=== PATIENT | male | born 1955 | race Caucasian/White ===

== ENCOUNTER 2016-04-20 22:35 | Inpatient (IN) | payer SELFPAY ==
[~2016-04-20] VITALS: Ht 180.3 cm; Wt 102.0 kg
[2016-04-21] VITALS (20 sets, daily range): BP systolic 89–134; BP diastolic 52–93
--- NOTE | 2016-04-21 00:32 | ED ORDER SUMMARY ---
..... Patient: CHLOE JEFFREY OrderSheet [facility] VisitID: [id number] [place] [address] 60y, M Registration Date/Time: 04/20/2016 ORDER SHEET Weight: 106.5 kg (stated) Allergies: No Known Drug Allergy GENERAL ORDERS: Chest 2V Urgent (22:48 04/20/2016 Tiago BARNES) (Ack 22:52 CHagerty ER [place]) (23:36 RFay) Blood Culture (No) (N/A) Urgent (22:48 04/20/2016 Tiago BARNES) (Ack 22:52 CHagerty ER [place]) (23:06 EInderbitzen R.N.) Cardiac Panel Stat (22:48 04/20/2016 Tiago BARNES) (Ack 22:52 CHagjames ER [place]) BNP Urgent (22:48 04/20/2016 Tiago BARNES) (Ack 22:52 CHagerty ER [place]) (23:06 EInderbitzen R.N.) D-Dimer Urgent (22:48 04/20/2016 Tiago BARNES) (Ack 22:52 CHagerty ER [place]) (23:06 EInderbitzen R.N.) Lactate, Serum Urgent (22:48 04/20/2016 Tiago BARNES) (Ack 22:52 CHagerty ER [place]) (23:06 EInderbitzen R.N.) PCT (Procalcitonin) Urgent (22:48 04/20/2016 Tiago BARNES) (Ack 22:52 CHagerty ER [place]) (23:06 EInderbitzen R.N.) Electroencephalographic Technician (Continuous) (22:49 04/20/2016 Tiago BARNES) (Ack 22:52 CHagerty ER [place]) (23:06 EInderbitzen R.N.) Oxygen (2 L/min) (NC) (22:49 04/20/2016 Tiago BARNES) (Ack 22:52 CHagerty ER [place]) (23:06 EInderbitzen R.N.) Pulse oximeter (22:49 04/20/2016 Tiago BARNES) (Ack 22:52 CHagerty ER [place]) (23:06 EInderbitzen R.N.) EKG - ER Stat (22:49 04/20/2016 Tiago BARNES) (Ack 22:52 CHagerty ER [place]) (23:02 CHagerty ER [place]) Rapid Influenza Screen (Nasal Pharyngeal) (swab) Urgent (22:50 04/20/2016 Tiago BARNES) (Ack 22:52 CHagerty ER [place]) (23:06 EInderbitzen R.N.) ABG (G) Urgent (23:03 04/20/2016 Tiago BARNES) (Ack 23:05 CHagerty ER [place]) (23:57 EInderbitzen R.N.) MEDICATION ORDERS: Albuterol Neb Tx 2.5 mg (HHN) (22:49 04/20/2016 Tiago BARNES) (Ack 22:52 CHagerty ER [place]) (23:03 CHagerty ER [place]) Bactrim DS PO (Tablet 800-160 mg) 2 tabs (NOW) (23:34 04/20/2016 Tiago BARNES) (0:04 EInderbitzen R.N.) IV FLUIDS: IV NS : initial bolus 1000 mL (1000 mL/hr), then 500 mL/hr for 2h (NOW); Routine (22:48 04/20/2016 Tiago BARNES) (23:23 EInderbitzen R.N.) Levaquin IV 750 mg/150 mL (NOW) (23:04 04/20/2016 Tiago BARNES) (23:24 EInderbitzen R.N.) ORDER SHEET NOTES: [Electronically signed by Bridget Luo R.N. (00:41 04/21/2016)] [Electronically signed by Conor Avila MD (21:06 04/22/2016)] [Electronically locked/signed by Bridget Luo R.N. (00:41 04/21/2016)]
--- NOTE | 2016-04-21 00:32 | ED CLINICAL REPORT ---
Clinical Report - Physicians/Mid Levels [facility] [address] [place] [address] 04/20/2016 22:36 Patient: CHLOE JEFFREY Time Seen: 22:42 Apr 20 2016. Arrived- By ambulance. Historian- patient and EMS personnel. CPT: Critical care < 74 min plus (#[id number]) and 30-74 min plus (#[id number]). EKG interpretation (#[id number]). HISTORY OF PRESENT ILLNESS Chief Complaint: DYSPNEA. This started last night This started last night. ( SHORT OF BREATH SINCE LAST NIGHT, WORSE TONIGHT, FRIENDS CALLED EMS. STATES HE WAS ALMOST PASSING OUT). and is still present. The dyspnea is described as moderate and is worsened by walking and exertion, is improved by rest and is improved with oxygen. The patient has had a cough and dizziness. He has had moderate amounts of thick sputum. There has been a change from baseline. He has had moderate chest soreness (right chest due to cutting firewood and coughing.). Similar symptoms previously: As bad. Diagnosis: pneumonia. Recent medical care: Not recently seen/assessed. REVIEW OF SYSTEMS No eye irritation, sore throat, nasal discharge, sinus drainage or nausea. No vomiting, abdominal pain, diarrhea, black stools or bloody stools. No headache, fainting episodes, difficulty with urination, excessive urination or skin rash. No enlarged lymph nodes or joint pain. The patient has had difficulty walking. He has had weakness. Family reports confusion at home. All systems otherwise negative, except as recorded above. PAST HISTORY Pneumonia 4 times. The last was 10 years ago. No history of heart disease, lung disease, renal disease, hypertension or neurological disease. No history of GI disease or diabetes mellitus. Surgeries: Tonsillectomy. Medications: None. Allergies: No Known Drug Allergy. SOCIAL HISTORY Heavy tobacco smoker (cigarette)- 1 pack per day. Alcohol use. History of drug use: marijuana. ADDITIONAL NOTES The nursing notes have been reviewed. PHYSICAL EXAM Vital Signs: 04/20/2016 22:37 BP: 114/66. HR: 108. RR: 24. O2 saturation: 87%. Temp: 98.8 F. Appearance: Alert. Patient in mild distress. Eyes: Pupils equal, round and reactive to light. Eyes normal inspection. (Subconjunctival hemorrhage. (hit in the eye prior)). ENT: Ears normal. Nose normal. Dry mucous membranes present. Pharynx normal. Uvula midline. Neck: Normal inspection. No jugular venous distention. CVS: Tachycardia. Heart sounds normal. Pulses normal. Respiratory: Moderate respiratory distress with tachypnea. Moderate right mid- chest wall tenderness. The tenderness is well-localized. Expiratory mild bilateral wheezes diffusely. Moderate rhonchi present in the right lung base posteriorly and mid-lung posteriorly. Rales present. Abdomen: Soft and nontender. Back: Normal inspection. Skin: Skin warm. Normal skin color. No rash. Extremities: Extremities exhibit normal ROM. No calf tenderness. No lower extremity edema. Neuro: Oriented X 3. No motor deficit. No sensory deficit. Reflexes normal. LABS, X-RAYS, AND EKG EKG: Normal sinus rhythm. Rate: 104. Tachycardia. Unifocal narrow-complex ectopic beats. Premature atrial contractions. Normal P waves. Normal ELSA. Normal QRS complex. Normal axis. Non-specific ST segment / T wave abnormalities. Prior EKG unavailable. The study has been interpreted contemporaneously. The study has been independently viewed by me. The EKG appears to be a good tracing. Chest X-ray: Infiltrate in the right middle lobe and right lower lobe. Consistent with pneumonia. No pneumothorax. Views: PA and lateral. Technique: good. The X-rays were independently viewed by me and interpreted contemporaneously by me. Laboratory Tests: CBC w Diff: (EMILY: 04/20/2016 22:50) ( MsgRcvd 04/20/2016 23:11) Final results Test Result Flag Units (Reference) WHITE BLOOD COUNT 13.8 H K/uL (4.5-11.5) RED BLOOD COUNT 5.09 M/uL (4.50-5.90) HEMOGLOBIN 15.7 gm/dL (13.5-17.5) HEMATOCRIT 46.4 % (41.0-53.0) MEAN CELL VOLUME 91 fL (80-100) MEAN CORPUSCULAR HGB 31 pg (26-34) MEAN CORPUSCULAR HGB CONC 34 g/dL (31-37) RED CELL DISTRIBUTION WIDTH 12.5 % (11.6-14.8) PLATELET COUNT 241 K/uL (150-400) LYMPH % 4.3 L % (25-40) MONO % 0.6 L % (3-14) GRANULOCYTE % 95.1 [id number]: (EMILY: 04/20/2016 22:50) ( [facility] 04/20/2016 23:17) Final results Test Result Flag Units (Reference) D-DIMER QUANTITATIVE 0.52 ug/mLFEU (0.27-0.52) The primary value of this quantitative assay relates toits negative predictive value (i.e. exclusion) of pulmonaryembolism/deep vein thrombosis/DIC.Elevated levels of d-dimer may also occur with:, age, cancer, inflammation, liver disease,post-op, infection, hematoma, coronary disease, peripheralarteriopathy, bleeding disorders and thrombolytic treatment.Results should be correlated with other clinical andradiological data.Testing Methodology: Latex Immunoassay BNP: (EMILY: 04/20/2016 22:50) ( [facility] 04/20/2016 23:30) Final results Test Result Flag Units (Reference) B-TYPE NATRIURETIC PEPTIDE 59.8 pg/ml (5-100) Lactate, Serum: (EMILY: 04/20/2016 22:50) ( [facility] [place]:32[place] Final results Test Result Flag Units (Reference) LACTIC ACID 3.4 H mmol/L (0.4-2.0) [id number]: (EMILY: 04/20/2016 22:50) ( [facility] 23:39) Final results Test Result Flag Units (Reference) PROCALCITONIN 14.1 H ng/mL (0-0.5) PCT Concentration: Interpretation : Risk/option for action PCT <=0.5 ng/mL : Systemic : Low risk forinfection(sepsis): progression to severeis not likely. : systemic infection.Local bacterial : CAUTION-PCT levelsinfection is : below 0.5 ng/mL do notpossible. : exclude an infection,because localizedinfections (withoutsystemic signs) may beassociated with suchlow levels. If PCT ismeasured very earlyafter a bacterialchallenge (usually <6hours), these valuesmay still be low. Inthis case PCT shouldbe re-assessed 6-24hours later. PCT >0.5 and : Systemic infection: Moderate risk for<= 2 ng/mL : (sepsis) is : progression to severepossible, but : systemic infection.other conditions : The patient should beare known to : closely monitoredelevate PCT. : both clinically andby re-assessing PCTwithin 6-24 hours. PCT > 2 ng/mL : Systemic infection: High risk for(sepsis) is likely: progression to severeunless other : systemic infection.causes are known. : PCT >= 10 ng/mL : Important systemic: High likelihood ofinflammatory : severe sepsis orresponse, almost : septic shock.exclusively due to:severe bacterial :sepsis or septic :shock. : CHEM 13 PANEL: (EMILY: 04/20/2016 22:50) ( MsgRcvd 04/20/2016 23:22) Final results Test Result Flag Units (Reference) GLUCOSE 141 H mg/dL (70-110) BUN 16 mg/dL (7-18) CREATININE 1.3 mg/dL (0.6-1.3) Estimated GFR 59.65 mL/min Estimated GFR- >60 mL/min Note: Persistent reduction over 3 months in eGFR<60 mL/min/1.73 m2 defines CKD. Patients with eGFR values>=60 mL/min/1.73 m2 may also have CKD if evidence ofpersistent proteinuria. Additional information may be foundat www.kidney.org. SODIUM 137 mmol/L (136-145) POTASSIUM 4.4 mmol/L (3.5-5.1) CHLORIDE 100 mmol/L (98-107) CARBON DIOXIDE 26 mmol/L (21-32) CALCIUM 8.8 mg/dL (8.5-10.1) TOTAL PROTEIN 6.6 g/dL (6.4-8.2) ALBUMIN 3.2 L g/dL (3.3-5.0) BILIRUBIN, TOTAL 1.1 H mg/dL (0.0-1.0) ALKALINE PHOSPHATASE 75 U/L (46-116) AST (SGOT) 17 U/L (15-37) ALT (SGPT) 26 U/L (12-78) MAGNESIUM 1.1 L mg/dL (1.8-2.4) CPK 134 U/L (24-260) TROPONIN I <0.05 L ng/mL (0.00-1.5) TROPONIN REFERENCE RANGE:<0.1 NEGATIVE0.1-1.5 INDETERMINANT>1.5 POSITIVE ABG: (EMILY: 04/20/2016 23:03) ( MsgRcvd 04/20/2016 23:24) Final results Test Result Flag Units (Reference) FIO2 0.35 L % (20-101) ABG MODE OF DELIVERY NC MODIFIED JENNIFER TEST POSITIVE? NO ARTERIAL BLOOD GAS SITE RR ARTERIAL BLOOD GAS pH 7.45 (7.35-7.45) ABG PCO2 36.2 mmHg (35-45) ABG PO2 62.8 mmHg (60.0-80.0) ABG BASE EXCESS 1.0 H mmol/L (-6.0--6.0) ABG HCO3 25.0 mmol/L (20.0-26.0) ABG TCO2 26.1 mmol/L (24.0-30.0) ABG [id number] 138.1 H mmHg (7.0-14.0) *NOTE: Normal rangeis based on aFIO2 of 21% ABG SAT O2 94.5 L % (95.1-100.0) ABG TOTAL HEMOGLOBIN 14.2 g/dL (14.0-18.0) ABG O2 HEMOGLOBIN 92.4 L % (95.0-100.0) ABG CARBOXYHEMOGLOBIN 1.9 H % (0.5-1.5) ABG METHEMOGLOBIN 0.3 L % (0.4-1.5) ABG RHEMOGLOBIN 5.4 % COMMENTS 4LNC Rapid Influenza Screen: (EMILY: 04/20/2016 22:50) ( MsgRcvd 04/20/2016 23:17) Final results SPECIMEN DESCRIPTION: SWAB Test Result Flag Units (Reference) RAPID INFLUENZA SCREEN CALLED TO: NA -- DATE: 04/20/16 INFLUENZA A: NEGATIVE SCREEN FOR INFLUENZA A INFLUENZA B: NEGATIVE SCREEN FOR INFLUENZA B . PROGRESS AND PROCEDURES Course of Care: IV NS BC times 1 Levaquin 750 mg IV NC 02 4 l with sat of 91% Albuterol HHN Patient is stable. Symptoms better. Critical care performed (95 minutes). Time is exclusive of separately billable procedures. Time includes: direct patient care, patient reassessment, coordination of patient care, interpretation of data (laboratory data, pulse oximetry, arterial blood gases and chest xrays), review of patient's medical records and documentation of patient care- see progress notes. Procedures included in critical care time: peripheral IV placement and phlebotomy. Procedures excluded from critical care time: electrocardiography. Discussed case with on-call health care provider, (23:42 Apr 20 2016 [facility]). Reviewed test results. Agreed upon treatment plan and decision to admit. Health care provider will see patient in hospital. Patient/family counseled. Old medical records ordered. Disposition orders written. Disposition: Admitted to the Critical Care Unit. CLINICAL IMPRESSION Bacterial bronchopneumonia with hypoxemia. Vital signs recorded and reviewed; empiric antibiotics given in the ED. Pleurisy. Hypoxia Dehydration Early sepsis with elevated lactic acid. INSTRUCTIONS Warnings: Further evaluation is necessary. (Electronically signed by Conor Avila MD 04/22/2016 21:06)
--- NOTE | 2016-04-21 00:32 | ED CLINICAL REPORT ---
Clinical Report - Physicians/Mid Levels [facility] [address] [place] [address] 04/20/2016 22:36 Patient: CHLOE JEFFREY Time Seen: 22:42 Apr 20 2016. Arrived- By ambulance. Historian- patient and EMS personnel. CPT: Critical care < 74 min plus (#[id number]) and 30-74 min plus (#[id number]). EKG interpretation (#[id number]). HISTORY OF PRESENT ILLNESS Chief Complaint: DYSPNEA. This started last night This started last night. ( SHORT OF BREATH SINCE LAST NIGHT, WORSE TONIGHT, FRIENDS CALLED EMS. STATES HE WAS ALMOST PASSING OUT). and is still present. The dyspnea is described as moderate and is worsened by walking and exertion, is improved by rest and is improved with oxygen. The patient has had a cough and dizziness. He has had moderate amounts of thick sputum. There has been a change from baseline. He has had moderate chest soreness (right chest due to cutting firewood and coughing.). Similar symptoms previously: As bad. Diagnosis: pneumonia. Recent medical care: Not recently seen/assessed. REVIEW OF SYSTEMS No eye irritation, sore throat, nasal discharge, sinus drainage or nausea. No vomiting, abdominal pain, diarrhea, black stools or bloody stools. No headache, fainting episodes, difficulty with urination, excessive urination or skin rash. No enlarged lymph nodes or joint pain. The patient has had difficulty walking. He has had weakness. Family reports confusion at home. All systems otherwise negative, except as recorded above. PAST HISTORY Pneumonia 4 times. The last was 10 years ago. No history of heart disease, lung disease, renal disease, hypertension or neurological disease. No history of GI disease or diabetes mellitus. Surgeries: Tonsillectomy. Medications: None. Allergies: No Known Drug Allergy. SOCIAL HISTORY Heavy tobacco smoker (cigarette)- 1 pack per day. Alcohol use. History of drug use: marijuana. ADDITIONAL NOTES The nursing notes have been reviewed. PHYSICAL EXAM Vital Signs: 04/20/2016 22:37 BP: 114/66. HR: 108. RR: 24. O2 saturation: 87%. Temp: 98.8 F. Appearance: Alert. Patient in mild distress. Eyes: Pupils equal, round and reactive to light. Eyes normal inspection. (Subconjunctival hemorrhage. (hit in the eye prior)). ENT: Ears normal. Nose normal. Dry mucous membranes present. Pharynx normal. Uvula midline. Neck: Normal inspection. No jugular venous distention. CVS: Tachycardia. Heart sounds normal. Pulses normal. Respiratory: Moderate respiratory distress with tachypnea. Moderate right mid- chest wall tenderness. The tenderness is well-localized. Expiratory mild bilateral wheezes diffusely. Moderate rhonchi present in the right lung base posteriorly and mid-lung posteriorly. Rales present. Abdomen: Soft and nontender. Back: Normal inspection. Skin: Skin warm. Normal skin color. No rash. Extremities: Extremities exhibit normal ROM. No calf tenderness. No lower extremity edema. Neuro: Oriented X 3. No motor deficit. No sensory deficit. Reflexes normal. LABS, X-RAYS, AND EKG EKG: Normal sinus rhythm. Rate: 104. Tachycardia. Unifocal narrow-complex ectopic beats. Premature atrial contractions. Normal P waves. Normal ELSA. Normal QRS complex. Normal axis. Non-specific ST segment / T wave abnormalities. Prior EKG unavailable. The study has been interpreted contemporaneously. The study has been independently viewed by me. The EKG appears to be a good tracing. Chest X-ray: Infiltrate in the right middle lobe and right lower lobe. Consistent with pneumonia. No pneumothorax. Views: PA and lateral. Technique: good. The X-rays were independently viewed by me and interpreted contemporaneously by me. Laboratory Tests: CBC w Diff: (EMILY: 04/20/2016 22:50) ( MsgRcvd 04/20/2016 23:11) Final results Test Result Flag Units (Reference) WHITE BLOOD COUNT 13.8 H K/uL (4.5-11.5) RED BLOOD COUNT 5.09 M/uL (4.50-5.90) HEMOGLOBIN 15.7 gm/dL (13.5-17.5) HEMATOCRIT 46.4 % (41.0-53.0) MEAN CELL VOLUME 91 fL (80-100) MEAN CORPUSCULAR HGB 31 pg (26-34) MEAN CORPUSCULAR HGB CONC 34 g/dL (31-37) RED CELL DISTRIBUTION WIDTH 12.5 % (11.6-14.8) PLATELET COUNT 241 K/uL (150-400) LYMPH % 4.3 L % (25-40) MONO % 0.6 L % (3-14) GRANULOCYTE % 95.1 [id number]: (EMILY: 04/20/2016 22:50) ( [facility] 04/20/2016 23:17) Final results Test Result Flag Units (Reference) D-DIMER QUANTITATIVE 0.52 ug/mLFEU (0.27-0.52) The primary value of this quantitative assay relates toits negative predictive value (i.e. exclusion) of pulmonaryembolism/deep vein thrombosis/DIC.Elevated levels of d-dimer may also occur with:, age, cancer, inflammation, liver disease,post-op, infection, hematoma, coronary disease, peripheralarteriopathy, bleeding disorders and thrombolytic treatment.Results should be correlated with other clinical andradiological data.Testing Methodology: Latex Immunoassay BNP: (EMILY: 04/20/2016 22:50) ( [facility] 04/20/2016 23:30) Final results Test Result Flag Units (Reference) B-TYPE NATRIURETIC PEPTIDE 59.8 pg/ml (5-100) Lactate, Serum: (EMILY: 04/20/2016 22:50) ( [facility] [place] [place] 23:32) Final results Test Result Flag Units (Reference) LACTIC ACID 3.4 H mmol/L (0.4-2.0) [id number]: (EMILY: 04/20/2016 22:50) ( [facility] 04/20/2016 23:39) Final results Test Result Flag Units (Reference) PROCALCITONIN 14.1 H ng/mL (0-0.5) PCT Concentration: Interpretation : Risk/option for action PCT <=0.5 ng/mL : Systemic : Low risk forinfection(sepsis): progression to severeis not likely. : systemic infection.Local bacterial : CAUTION-PCT levelsinfection is : below 0.5 ng/mL do notpossible. : exclude an infection,because localizedinfections (withoutsystemic signs) may beassociated with suchlow levels. If PCT ismeasured very earlyafter a bacterialchallenge (usually <6hours), these valuesmay still be low. Inthis case PCT shouldbe re-assessed 6-24hours later. PCT >0.5 and : Systemic infection: Moderate risk for<= 2 ng/mL : (sepsis) is : progression to severepossible, but : systemic infection.other conditions : The patient should beare known to : closely monitoredelevate PCT. : both clinically andby re-assessing PCTwithin 6-24 hours. PCT > 2 ng/mL : Systemic infection: High risk for(sepsis) is likely: progression to severeunless other : systemic infection.causes are known. : PCT >= 10 ng/mL : Important systemic: High likelihood ofinflammatory : severe sepsis orresponse, almost : septic shock.exclusively due to:severe bacterial :sepsis or septic :shock. : CHEM 13 PANEL: (EMILY: 04/20/2016 22:50) ( MsgRcvd 04/20/2016 23:22) Final results Test Result Flag Units (Reference) GLUCOSE 141 H mg/dL (70-110) BUN 16 mg/dL (7-18) CREATININE 1.3 mg/dL (0.6-1.3) Estimated GFR 59.65 mL/min Estimated GFR- >60 mL/min Note: Persistent reduction over 3 months in eGFR<60 mL/min/1.73 m2 defines CKD. Patients with eGFR values>=60 mL/min/1.73 m2 may also have CKD if evidence ofpersistent proteinuria. Additional information may be foundat www.kidney.org. SODIUM 137 mmol/L (136-145) POTASSIUM 4.4 mmol/L (3.5-5.1) CHLORIDE 100 mmol/L (98-107) CARBON DIOXIDE 26 mmol/L (21-32) CALCIUM 8.8 mg/dL (8.5-10.1) TOTAL PROTEIN 6.6 g/dL (6.4-8.2) ALBUMIN 3.2 L g/dL (3.3-5.0) BILIRUBIN, TOTAL 1.1 H mg/dL (0.0-1.0) ALKALINE PHOSPHATASE 75 U/L (46-116) AST (SGOT) 17 U/L (15-37) ALT (SGPT) 26 U/L (12-78) MAGNESIUM 1.1 L mg/dL (1.8-2.4) CPK 134 U/L (24-260) TROPONIN I <0.05 L ng/mL (0.00-1.5) TROPONIN REFERENCE RANGE:<0.1 NEGATIVE0.1-1.5 INDETERMINANT>1.5 POSITIVE ABG: (EMILY: 04/20/2016 23:03) ( MsgRcvd 04/20/2016 23:24) Final results Test Result Flag Units (Reference) FIO2 0.35 L % (20-101) ABG MODE OF DELIVERY NC MODIFIED JENNIFER TEST POSITIVE? NO ARTERIAL BLOOD GAS SITE RR ARTERIAL BLOOD GAS pH 7.45 (7.35-7.45) ABG PCO2 36.2 mmHg (35-45) ABG PO2 62.8 mmHg (60.0-80.0) ABG BASE EXCESS 1.0 H mmol/L (-6.0--6.0) ABG HCO3 25.0 mmol/L (20.0-26.0) ABG TCO2 26.1 mmol/L (24.0-30.0) ABG AuEtN3u 138.1 H mmHg (7.0-14.0) *NOTE: Normal rangeis based on aFIO2 of 21% ABG SAT O2 94.5 L % (95.1-100.0) ABG TOTAL HEMOGLOBIN 14.2 g/dL (14.0-18.0) ABG O2 HEMOGLOBIN 92.4 L % (95.0-100.0) ABG CARBOXYHEMOGLOBIN 1.9 H % (0.5-1.5) ABG METHEMOGLOBIN 0.3 L % (0.4-1.5) ABG RHEMOGLOBIN 5.4 % COMMENTS 4LNC Rapid Influenza Screen: (EMILY: 04/20/2016 22:50) ( MsgRcvd 04/20/2016 23:17) Final results SPECIMEN DESCRIPTION: SWAB Test Result Flag Units (Reference) RAPID INFLUENZA SCREEN CALLED TO: NA -- DATE: 04/20/16 INFLUENZA A: NEGATIVE SCREEN FOR INFLUENZA A INFLUENZA B: NEGATIVE SCREEN FOR INFLUENZA B . PROGRESS AND PROCEDURES Course of Care: IV NS BC times 1 Levaquin 750 mg IV NC 02 4 l with sat of 91% Albuterol HHN Patient is stable. Symptoms better. Critical care performed (95 minutes). Time is exclusive of separately billable procedures. Time includes: direct patient care, patient reassessment, coordination of patient care, interpretation of data (laboratory data, pulse oximetry, arterial blood gases and chest xrays), review of patient's medical records and documentation of patient care- see progress notes. Procedures included in critical care time: peripheral IV placement and phlebotomy. Procedures excluded from critical care time: electrocardiography. Discussed case with on-call health care provider, (23:42 Apr 20 2016 [facility]). Reviewed test results. Agreed upon treatment plan and decision to admit. Health care provider will see patient in hospital. Patient/family counseled. Old medical records ordered. Disposition orders written. Disposition: Admitted to the Critical Care Unit. CLINICAL IMPRESSION Bacterial bronchopneumonia with hypoxemia. Vital signs recorded and reviewed; empiric antibiotics given in the ED. Pleurisy. Hypoxia Dehydration Early sepsis with elevated lactic acid. INSTRUCTIONS Warnings: Further evaluation is necessary. (Electronically signed by Conor Avial MD 04/22/2016 21:06)
--- NOTE | 2016-04-21 00:32 | ED ORDER SUMMARY ---
..... Patient: CHLOE JEFFREY OrderSheet [facility] VisitID: [id number] [place] [address] 60y, M Registration Date/Time: 04/20/2016 ORDER SHEET Weight: 106.5 kg (stated) Allergies: No Known Drug Allergy GENERAL ORDERS: Chest 2V Urgent (22:48 04/20/2016 Tiago BARNES) (Ack 22:52 CHagerty ER Coremaker Supervisor) (23:36 RFay) Blood Culture (No) (N/A) Urgent (22:48 04/20/2016 Tiago BARNES) (Ack 22:52 CHagerty ER Coremaker Supervisor) (23:06 EInderbitzen R.N.) Cardiac Panel Stat (22:48 04/20/2016 Tiago BARNES) (Ack 22:52 CHagjames ER Coremaker Supervisor) BNP Urgent (22:48 04/20/2016 Tiago BARNES) (Ack 22:52 CHagerty ER Coremaker Supervisor) (23:06 EInderbitzen R.N.) D-Dimer Urgent (22:48 04/20/2016 Tiago BARNES) (Ack 22:52 CHagerty ER Coremaker Supervisor) (23:06 EInderbitzen R.N.) Lactate, Serum Urgent (22:48 04/20/2016 Tiago BARNES) (Ack 22:52 CHagerty ER Coremaker Supervisor) (23:06 EInderbitzen R.N.) PCT (Procalcitonin) Urgent (22:48 04/20/2016 Tiago BARNES) (Ack 22:52 CHagerty ER Coremaker Supervisor) (23:06 EInderbitzen R.N.) Derrick Boat Operator (Continuous) (22:49 04/20/2016 Tiago BARNES) (Ack 22:52 CHagerty ER Coremaker Supervisor) (23:06 EInderbitzen R.N.) Oxygen (2 L/min) (NC) (22:49 04/20/2016 Tiago BARNES) (Ack 22:52 CHagerty ER Coremaker Supervisor) (23:06 EInderbitzen R.N.) Pulse oximeter (22:49 04/20/2016 Tiago BARNES) (Ack 22:52 CHagerty ER Coremaker Supervisor) (23:06 EInderbitzen R.N.) EKG - ER Stat (22:49 04/20/2016 Tiago BARNES) (Ack 22:52 CHagerty ER Coremaker Supervisor) (23:02 CHagerty ER Coremaker Supervisor) Rapid Influenza Screen (Nasal Pharyngeal) (swab) Urgent (22:50 04/20/2016 Tiago BARNES) (Ack 22:52 CHagerty ER Coremaker Supervisor) (23:06 EInderbitzen R.N.) ABG (G) Urgent (23:03 04/20/2016 Tiago BARNES) (Ack 23:05 CHagerty ER Coremaker Supervisor) (23:57 EInderbitzen R.N.) MEDICATION ORDERS: Albuterol Neb Tx 2.5 mg (HHN) (22:49 04/20/2016 Tiago BARNES) (Ack 22:52 CHagerty ER Coremaker Supervisor) (23:03 CHagerty ER Coremaker Supervisor) Bactrim DS PO (Tablet 800-160 mg) 2 tabs (NOW) (23:34 04/20/2016 Tiago BARNES) (0:04 EInderbitzen R.N.) IV FLUIDS: IV NS : initial bolus 1000 mL (1000 mL/hr), then 500 mL/hr for 2h (NOW); Routine (22:48 04/20/2016 Tiago BARNES) (23:23 EInderbitzen R.N.) Levaquin IV 750 mg/150 mL (NOW) (23:04 04/20/2016 Tiago BARNES) (23:24 EInderbitzen R.N.) ORDER SHEET NOTES: [Electronically signed by Bridget Luo R.N. (00:41 04/21/2016)] [Electronically signed by Conor Avila MD (21:06 04/22/2016)] [Electronically locked/signed by Bridget Luo R.N. (00:41 04/21/2016)]
--- NOTE | 2016-04-21 00:32 | ED NURSING NOTES ---
Clinical Report - Nurses [facility] [address] [place] [address] 04/20/2016 22:36 Patient: CHLOE JEFFREY TRIAGE Triage time 22:37 Apr 20 2016. Acuity: LEVEL 3. Chief Complaint: SHORTNESS OF BREATH. 22:37 04/20/16. ( o2 APPLIED DURING TRIAGE 2LPM). SEPSIS SCREEN: Sepsis Screen. Negative (no infection suspected/documented). --22:41 Bridget Luo R.N. 22:37 04/20/16. BP: 114/66. HR: 108. RR: 24. O2 saturation: 87%. Temp: 98.8 F. Pain level now 0/10. --22:41 Bridget Luo R.N. <<STRICKEN ENTRY-- 22:37 04/20/16. BP: 114/66. HR: 108. RR: 24. O2 saturation: 97%. Temp: 98.8 F. Pain level now 0/10. --22:41 Bridget Luo R.N. --END STRIKE>> Correction. --22:45 Bridget Luo R.N. Weight: 106.5 kg stated. Height/Length: 71 inches Per Patient. BMI: 32.8. --22:36 Bridget Luo R.N. Medications None. --22:37 Bridget Luo R.N. Medication/allergy information source: the patient. --22:41 Bridget Luo R.N. Allergies No Known Drug Allergy. --22:37 Bridget Luo R.N. History Arrived by EMS. Historian: patient. This started last night. ( SHORT OF BREATH SINCE LAST NIGHT, WORSE TONIGHT, FRIENDS CALLED EMS. STATES HE WAS ALMOST PASSING OUT). Treatment TEACHER LIP READING: None. PAST MEDICAL HX: Has not received pneumonia vaccine or seasonal influenza immunization. SOCIAL HX: Heavy tobacco smoker- 1 pack per day. Occasional alcohol use. History of drug use: marijuana. No infectious disease exposure. ABUSE ASSESSMENT: No report of abuse. SELF HARM ASSESSMENT: A self harm assessment was performed. The patient answered "no" to the question "Have you recently felt down, depressed, or hopeless?", "Have you noticed less interest or pleasure in doing things?", "Do you have thoughts of harming or killing yourself?", "Are you here because you tried to hurt yourself?", "Have you ever tried to hurt yourself before today?", "Have you recently had thoughts about harming or killing others?" and "Do you have any dangerous items in your possession?". NUTRITIONAL RISK ASSESSMENT: The nutritional risk assessment revealed no deficiencies. FUNCTIONAL ASSESSMENT: Functional assessment: no impairments noted. LEARNING NEEDS ASSESSMENT: The learning needs assessment revealed no barriers. SKIN INTEGRITY ASSESSMENT: Skin integrity risk assessment completed. No skin integrity risk identified. --22:41 Bridget Luo R.N. PROBLEMS: Pneumonia. --22:47 Bridget Luo R.N. ADDITIONAL SURGERIES: Appendectomy. --22:47 Bridget Luo R.N. Interventions ID band on patient. --22:41 Bridget Luo R.N. PHYSICAL ASSESSMENT 22:45 04/20/16. To room via stretcher. GENERAL / NEURO / PSYCH: Alert. Oriented X 4. HEENT: Mucous membranes are pink. RESPIRATORY: No respiratory distress. Moderate respiratory distress. The patient can speak in full sentences. Rhonchi present (BILAT MORE ON RIGHT THAN LEFT). ( PAIN WITH BREATHING). CVS: Normal sinus rhythm noted. GI / : Abdomen soft. SKIN: Skin is warm and dry. Normal skin turgor. --22:45 Bridget Luo R.N. NURSING PROGRESS NOTES 22:37 04/20/16. The initial plan of care for this patient includes an assessment with efforts to address the presence of pain; impairment of the respiratory system. This plan of care was discussed with the patient. Oxygen administered at 2 liters. Patient gowned. Patient identifiers checked. Call light placed in reach. Side rails up x 1. Bed placed in lowest position. Brakes of bed on. Patient ready for evaluation. --22:46 Bridget Luo R.N. 22:44 04/20/16. ( CALLED TO ROOM). --22:47 Bridget Luo R.N. 22:50 04/20/2016 Site #1 started via IV in the left forearm with an 18g angiocath, with aseptic technique and good blood return; one attempt. Blood drawn: rainbow set and cultures x1. Labeled in the presence of the patient and sent to the lab. Saline lock flushed with 10 mL saline (1st lactic acid sent on ice). --23:06 Bridget Luo R.N. 23:03 04/20/2016 Albuterol Neb TX 2.5 mg given. Given by the respiratory therapist. Allergies verified and confirmed 5 rights. --23:03 Abiodun Wynn, ER Housekeeper Manager EKG time: (2303). EKG was ordered, performed by a tech and shown to the ED physician. --23:03 Abiodun Wynn, ER Housekeeper Manager 23:16 04/20/16. BP: 100/60. HR: 102. RR: 28. O2 saturation: 89%. Pain level now 0/10. --23:16 Bridget Luo R.N. 23:10 04/20/2016 Started bag #1 1000 mL IV Fluids IV NS (Saline); at 3000 mL/hr over 20 minute(s) via site #1. Allergies verified and confirmed 5 rights. IV patency established. IV site checked: no pain, redness, or swelling. IV flushed thoroughly pre- and post-medication administration. --23:23 Bridget Luo R.N. 23:15 04/20/2016 Started 750 mg of Levaquin (Levofloxacin) IVPB in bag #1 150 mL; at 100 mL/hr over 90 minute(s) via site #1 via IV pump. Allergies verified and confirmed 5 rights. IV patency established. IV site checked: no pain, redness, or swelling. IV flushed thoroughly pre- and post-medication administration. --23:24 Bridget Luo R.N. 23:16 04/20/16. Cardiac rhythm: normal sinus rhythm. --23:16 Bridget Luo R.N. 23:23 04/20/2016 IV Fluids IV NS Discontinued: bag #1 completed. Total amount infused: 1000 mL. IV patency established. IV site checked: no pain, redness, or swelling. IV flushed thoroughly. --00:03 Bridget Luo R.N. 23:24 04/20/16. ( blood gas collected from rt radial artery. p\\+ allens test. pressure held for 2 min. post procedure. no bleeding or hematoma noted. pressure dressing applied.). --23:24 Bridget Luo R.N. 23:28 04/20/16. Patient transported to radiology by stretcher. --23:30 Bridget Luo R.N. 00:01 04/21/2016 Bactrim DS (Sulfamethoxazole-TMP DS) PO Tablets 2 tab given. Allergies verified and confirmed 5 rights. --00:04 Bridget Luo R.N. 00:03 04/21/2016 Started bag #1 1000 mL IV Fluids IV NS (Saline); at 500 mL/hr over 2 hour(s) via site #1. Allergies verified and confirmed 5 rights. IV patency established. IV site checked: no pain, redness, or swelling. IV flushed thoroughly pre- and post-medication administration. --00:03 Bridget Luo R.N. 00:05 04/21/16. Cardiac rhythm: normal sinus rhythm. --00:05 Bridget Luo R.N. 00:05 04/21/16. BP: 93/54. HR: 98. RR: 29. O2 saturation: 92%. Pain level now 0/10. --00:05 Bridget Luo R.N. DISPOSITION / DISCHARGE 00:11 04/21/2016 Levaquin IVPB Continued: at the rate of 100 mL/hr. 50 mL remaining. IV patency established. IV site checked: no pain, redness, or swelling. IV flushed thoroughly. --00:11 Bridget Luo R.N. 00:12 04/21/2016 Site #[address] upon admission; patent. Good blood return present; flushes easily. --00:12 Bridget Luo R.N. 00:12 04/21/2016 IV Fluids IV NS Continued: at the rate of 1000 mL/hr. 900 mL remaining bag #2. IV patency established. IV site checked: no pain, redness, or swelling. IV flushed thoroughly. --00:12 Bridget Luo R.N. Cardiac rhythm: normal sinus rhythm. Condition at departure: improved and stable. The goals identified in the patient's plan of care were met. Admitted (icu 304). Report was given to a nurse via a phone call. Report included patient's care, treatment, medications, reviewed medication reconcilliation, and condition (including any recent changes or anticipated changes). All questions were answered. Report was acknowledged. (to WILLIAM Calhoun). FALL RISK ASSESSMENT: Fall risk assessment completed. No fall risk identified. --00:12 Bridget Luo R.N. 00:10 04/21/16. BP: 113/65. HR: 101. RR: 29. O2 saturation: 92%. Pain level now 0/10. --00:12 Bridget Luo R.N. Departure time: 00:12 Apr 21 2016. --00:12 Bridget Luo R.N. Locked/Released at 04/21/2016 0:41 by Bridget Luo R.N.
--- NOTE | 2016-04-21 00:33 | History & Physical Report ---
Admission Admit Date 04/20/16 History Chief Complaint Cough, Shortness of Breath History of Present Illness Patient is a 60 year old male with a past medical history of Tobacco Use Disorder who presents to the ER at [facility] complaining of shortness of breath. Pt states his symptoms have been present for the last day or so and seem to be worsening. Pt states he has also had a significant cough which is productive of sputum. Pt reports intermittent fever and chills at home. He denies any nausea or vomiting. Pt denies any chest pain. He does complain of weakness. Pt states he has not recently had any sick contacts. In the ER, pt is found to have an SpO2 of 87% on room air on arrival. He was started on supplemental O2 and was found to have an acute RML pneumonia on chest x-ray. No other complaints or concerns at this time. Patient History 1. Tobacco use disorder Social History Pt smokes cigarettes daily. Pt denies any hx of excessive alcohol use or use of illicit drugs. Family History Family history was reviewed; no changes noted. Medications and Allergies Medications Current Medications Sig/Candy Start time Last Medication Dose Route Stop Time Status Admin Enoxaparin Sodium 40 MG QAM 04/22 0900 UNV SC Pantoprazole Sodium 40 MG DAILY@0600 04/21 0600 UNV IV Albuterol Sulfate 2.5 MG RTQ3H 04/21 0200 UNV IN Magnesium Sulfate 100 ML NOW STA 04/21 0019 UNV IV 04/21 0038 Acetaminophen 650 MG Q4H PRN 04/21 14 UNV PO Al Hydrox/Mg Hydrox/ 15 ML Q1H PRN 04/21 14 UNV Simethicone PO Atropine Sulfate 0.5 MG Q3MIN PRN 04/21 14 UNV IV Azithromycin 500 MG Q24HR 04/21 14 UNVr Sodium Chloride 250 ML IV 04/23 1000 Ceftriaxone Sodium/ 50 ML Q24HR 04/21 14 UNVr Dextrose IV Docusate Sodium 250 MG BID PRN 04/21 14 UNV PO Hydromorphone HCl 1 MG Q6H PRN 04/21 14 UNV IV Lidocaine HCl See Dose ONCE PRN 04/21 14 UNi Insts (1) IV Magnesium Hydroxide 10 ML DAILY PRN 04/21 14 UNV PO Morphine Sulfate 2 MG Q3M PRN 04/21 14 UNV IV Naloxone HCl 0.4 MG PRN PRN 04/21 14 UNV IV Nitroglycerin 0.4 MG Q5M PRN 04/21 14 UNV SL Ondansetron HCl 4 MG Q6H PRN 04/21 14 UNV IV Sodium Chloride 1,000 ML ASDIRECTED 04/21 14 UNV IV Ondansetron HCl 4 MG Q4H PRN 04/20 2344 AC IV Sodium Chloride 1,000 ML ASDIRECTED 04/20 2344 AC IV Dose Instructions: (1)Lidocaine HCl: 1.5 MG/KG Allergies Coded Allergies: NKA (04/21/16) Review of Systems Other All systems reviewed and are negative except for what has already been mentioned in the HPI. Physical Exam Vital Signs / I&Os Vital Signs Date Time Temp Pulse Resp B/P Pulse O2 O2 Flow FiO2 Ox Delivery Rate 04/20 2329 4.0 04/20 2257 3.0 Other GENERAL: NAD; Pt laying comfortably in bed HEENT: AT/NC; PERRLA, EOMI; MM Moist CARDIAC: RRR, No M/R/G appreciated PULM: Crackles at right lung base with mild wheezes throughout bilateral lungs; Normal respiratory effort at present ABD: Soft, NT, ND, Positive BS in all quadrants; No hepatosplenomegaly appreciated EXT: No C/C/E in bilateral upper and lower extremity; No calve tenderness bilaterally SKIN: Warm, dry, pink, and intact NEURO: Alert and oriented x3; Following all commands PSYCH: Normal mood and affect LAB Results Laboratory Tests 04/20 04/20 04/20 04/20 04/20 2303 2250 2250 2250 2250 Blood Gas Sample Site RR Total CO2 (24.0 - 30.0 mmol/L) 26.1 ABG pH (7.35 - 7.45) 7.45 ABG pCO2 at Pt Temp (35 - 45 mmHg) 36.2 ABG pO2 at Pt Temp (60.0 - 80.0 mmHg) 62.8 ABG HCO3 (20.0 - 26.0 mmol/L) 25.0 ABG O2 Sat Calc/Teodora (95.1 - 100.0 %) 94.5 ABG Base Excess (-6.0 - -6.0 mmol/L) 1.0 ABG Reduced Hgb (%) 5.4 ABG Carboxyhemoglobin (0.5 - 1.5 %) 1.9 ABG Methemoglobin (0.4 - 1.5 %) 0.3 Stuart Test NO Other Total Hgb (14.0 - 18.0 g/dL) 14.2 A-a O2 Gradient (7.0 - 14.0 mmHg) 138.1 Hgb O2 Saturation (95.0 - 100.0 %) 92.4 Vent Mode NC FiO2 (20 - 101 %) 0.35 Blood Gas Comments 4LNC Chemistry Plasma Sodium (136 - 145 mmol/L) 137 Plasma Potassium (3.5 - 5.1 mmol/L) 4.4 Plasma Chloride (98 - 107 mmol/L) 100 CO2 (Enzymatic) (21 - 32 mmol/L) 26 BUN (7 - 18 mg/dL) 16 Creatinine (0.6 - 1.3 mg/dL) 1.3 Est GFR ( Amer) (mL/min) >60 Est GFR (Non-Af Amer) (mL/min) 59.65 Glucose (70 - 110 mg/dL) 141 Lactic Acid (0.4 - 2.0 mmol/L) 3.4 Plasma Calcium (8.5 - 10.1 mg/dL) 8.8 Plasma Magnesium (1.8 - 2.4 mg/dL) 1.1 Total Bilirubin (0.0 - 1.0 mg/dL) 1.1 AST (15 - 37 U/L) 17 ALT (12 - 78 U/L) 26 Alkaline Phosphatase (46 - 116 U/L) 75 Creatine Kinase (24 - 260 U/L) 134 Troponin (0.00 - 1.5 ng/mL) <0.05 B-Natriuretic Peptide (5 - 100 pg/ml) 59.8 Total Protein (6.4 - 8.2 g/dL) 6.6 Albumin (3.3 - 5.0 g/dL) 3.2 Procalcitonin (0 - 0.5 ng/mL) 14.1 Coagulation D-Dimer, Quantitative (0.27 - 0.52 ug/mLFEU) 0.52 Hematology WBC (4.5 - 11.5 K/uL) 13.8 RBC (4.50 - 5.90 M/uL) 5.09 Hgb (13.5 - 17.5 gm/dL) 15.7 Hct (41.0 - 53.0 %) 46.4 MCV (80 - 100 fL) 91 MCH (26 - 34 pg) 31 RDW (11.6 - 14.8 %) 12.5 Gran % 95.1 Lymph % (Auto) (25 - 40 %) 4.3 [place] % (Auto) (3 - 14 %) 0.6 Plt Count, EDTA (150 - 400 K/uL) 241 PUBS MCHC (31 - 37 g/dL) 34 Microbiology Date/Time Procedure - Status Source Growth 04/21 5 Blood Culture - COLB BLOOD 04/21 5 Blood Culture - COLB BLOOD 04/20 2249 Influenza Screen - COMP NASALPHAR 04/20 2249 Blood Culture - RECD BLOOD Imaging Chest x-ray shows a large, right middle lobe infiltrate consistent with pneumonia. Assessment and Plan Problem List 1. Severe sepsis Plan - Admit to CCU now under Inpatient status as pts length of stay in hospital is anticipated to be greater than 2 midnights - Pt has been bolused with 1 liter of NS in the ER - Continue IV Normal Saline at 150 mL/hour for now - Check Lactate q 2 hours for now - Repeat CBC with diff, BMP, Procalcitonin in AM - Check CRP now - Will order blood cultures x2 now - IV Rocephin 2 grams daily - IV Azithromycin 500 mg daily - Monitor closely 2. Pneumonia Plan - Present on admission - This is likely community acquired - Start IV Rocephin 2 grams daily - Start IV Azithromycin 500 mg daily - Check urine Legionella Ag - Check urine Strep Pneumoniae Ag - Check respiratory viral PCR panel now - Albuterol nebs q3 hours for now - Supplemental O2 PRN to keep SpO2 greater than 92% 3. Hypomagnesemia Plan - Will replace with 4 grams Magnesium Sulfate now - Recheck Mg level in AM 4. Acute respiratory failure with hypoxia Plan - Secondary to Pneumonia - Continue supplmental O2 to keep SpO2 greater than 92% - Continue routine Albuterol nebulization treatments for now - Monitor closely DNR/DNI, per discussion with patient at bedside. 55 minutes critical care time spent managing pts acute severe sepsis, pneumonia, and acute respiratory failure.
--- NOTE | 2016-04-21 00:46 | DIAGNOSTIC IMAGING REPORT ---
PROCEDURE: XR CHEST 2 VIEW INDICATION: SHORTNESS OF BREATH TECHNIQUE: PA and lateral views. COMPARISON: None. FINDINGS: Moderate to marked increase parenchymal change in the right middle lobe . Left lung is clear Heart and mediastinum are normal. Mild degenerative change of the thoracic spine. IMPRESSION: 1. Right middle lobe consolidation/pneumonia.
--- NOTE | 2016-04-21 01:58 | NUR ---
Pt arrived to CCU RM 304 refused to get off stretcher at first sarcastic with staff, then would say "why won't you guys leave me alone" pt's girlfriend and friend arrived with pt and visited later and left. Pt sats were 85% 3L upon arrival increased to 6L no change, RT notified/ arrived, after pulmonary hygiene and Neb sats increased to 93%, resp rate high 20's, SR 90's no ectopy, course rhonchi bilateral, right eye bloodshot with brusing below, pt stated "none of your business" when questioned on how he received it, generalized abrasions to hands and dry mouth and lips and dry hands, refused to remove pants, pt c/o right mid chest area which is chronic per pt and just recently chopped some would and stated it was "muscular".Pain occurs with movement. Dilauid given IV x 1. NS bolus/Mag IV/IV ABX all infusing. Call light in reach and bed alarm set for fall prevention/safety.
--- NOTE | 2016-04-21 11:20 | NUR ---
PT UP IN THE CHAIR. O2 SATS LOW 90'S ON 6L NC. REPORTS SOB, WORSENED BY CHRONIC RIGHT CHEST PAIN. MEDICATED WITH IV DILAUDID AND PO TYLENOL WITH RELIEF. NOW ABLE TO TAKE DEEP BREATHS. USING IS TO 1999. TELE IN SINUS ARRYTHMIA. WILL MONITOR.
--- NOTE | 2016-04-21 20:47 | NUR ---
PT RESTING UP IN CHAIR WATCHING TV. ALERT AND ORIENTED X3. PAIN AT A 1/10 TO RIGHT CHEST WALL - INTERMITTANT - INCREASES WITH INSPIRATION. O2 SATS AT 94%, PT ON 4 LITER. NO SOB NOTED. TELE SHOWS SINUS ARYTHMIA - HEART RATE AT 95. 1999 BLOOD DRAW COMPLETED - AWAITING RESULTS. SCDS BILAT WHILE IN BED. CALL LIGHT WITHIN REACH. NO REQUESTS AT THIS TIME.
[2016-04-22 02:16] VITALS: BP 129/73
--- NOTE | 2016-04-22 06:36 | NUR ---
NO NOTABLE CHANGES. PT IS COOPERATIVE TO CARE. NO SOB. REMAINS ON 4 LITERS NC - O2 SATS AT 99%. HEART RATE IN THE 90'S. CALL LIGHT WITHIN REACH. NO REQUESTS THIS AM.
[2016-04-22 07:26] VITALS: BP 89/61; BP 92/70
--- NOTE | 2016-04-22 09:26 | NUR ---
PATIENT UP TO CHAIR FOR BREAKFAST. RESTING COMFORTABLY. ENCOURAGED USING IS AND AMBULATION. SEE SHIFT ASSESSMENT FOR FURTHER DETAILS.
[2016-04-22 11:24] VITALS: BP 106/75
--- NOTE | 2016-04-22 13:24 | Progress Note ---
Subjective General Pt doing well overnight. Patient has had no acute events and his supplemental oxygen requirement has been going down persistently. Currently patient is saturating at 95% on room air. Patient is ready for discharge today. Constitutional Denies: Fever, Chills, Sweats, Weakness, Malaise, Other. Eyes Conjunctival Inflammation, Redness. ENT Denies: Ear Pain, Ear Discharge, Nose Pain, Nasal Discharge, Nasal Congestion, Mouth Pain, Mouth Swelling, Throat Pain, Throat Swelling, Other. Respiratory Denies: Cough, Dry, SOB w/exertion, Wheezing, Hemoptysis, Pleuritic Pain, Sputum , Other. Cardiovascular Denies: Chest Pain, Palpitations, Orthopnea, PND, Edema, Light-headedness, Other. Gastrointestinal Denies: Nausea, Vomiting, Abdominal Pain, Diarrhea, Constipation, Melena, Hematochezia, Other. Genitourinary Denies: Dysuria, Frequency, Incontinence, Hematuria, Retention, Other. Musculoskeletal Denies: Neck Pain, Shoulder Pain, Arm Pain, Back Pain, Hand Pain, Leg Pain, Foot Pain, Other. Physical Exam Vital Signs / I&Os Vital Signs Date Time Temp Pulse Resp B/P Pulse O2 O2 Flow FiO2 Ox Delivery Rate 04/22 1214 Room Air 04/22 1124 98.6 94 20 106/75 96 Nasal 2.0 Cannula 04/22 0954 2.0 04/22 0753 2.0 04/22 0726 98.1 91 20 92/70 96 Nasal 2.0 Cannula 04/22 0517 4.0 04/22 0216 4.0 04/22 0216 99.0 95 20 129/73 99 Nasal 4.0 Cannula 02 2310 4.0 04/21 2235 103 14 133/85 96 Nasal 4.0 Cannula / 2036 Nasal 4.0 Cannula / 2010 4.0 02/ 1811 99.0 104 19 111/93 94 Nasal 4.0 Cannula 02/ 1710 98.2 93 22 123/87 94 Nasal 5.0 Cannula 02/ 1706 5.0 02/ 1612 98.6 90 21 121/75 97 Nasal 5.0 Cannula 02 1511 98.6 95 29 118/56 93 Nasal 5.0 Cannula 02/ 1402 97 24 117/69 95 Nasal 6.0 Cannula 02/ 1357 6.0 02 1322 89 18 98/80 95 Nasal 6.0 Cannula I&O 04/21 0800 04/21 1600 04/22 0000 Intake Total 2138 240 2601 Output Total 290 1000 500 Balance 1848 -760 2101 General Appearance Alert, Oriented X3, No acute distress HEENT Atraumatic, PERRLA, Moist mucous membranes Lungs faint crackles in bilateral bases Neck Normal exam, No JVD Cardiovascular Regular rate and rhythm, Normal S1 and S2 Abdomen Normal exam, Normal bowel sounds, Soft Skin No Breakdown, No Significant Lesions LAB Results Laboratory Tests 04/21 04/21 04/22 04/22 1405 2000 0400 0420 Chemistry Plasma Sodium (136 - 145 mmol/L) Cancelled 140 Plasma Potassium (3.5 - 5.1 mmol/L) Cancelled 4.3 Plasma Chloride (98 - 107 mmol/L) Cancelled 106 CO2 (Enzymatic) (21 - 32 mmol/L) Cancelled 24 BUN (7 - 18 mg/dL) Cancelled 18 Creatinine (0.6 - 1.3 mg/dL) Cancelled 0.9 Est GFR ( Amer) (mL/min) Cancelled >60 Est GFR (Non-Af Amer) (mL/min) Cancelled >60 Glucose (70 - 110 mg/dL) Cancelled 120 Lactic Acid (0.4 - 2.0 mmol/L) 3.7 Plasma Calcium (8.5 - 10.1 mg/dL) Cancelled 8.6 Plasma Magnesium Cancelled Total Bilirubin (0.0 - 1.0 mg/dL) Cancelled 0.4 AST (15 - 37 U/L) Cancelled 11 ALT (12 - 78 U/L) Cancelled 19 Alkaline Phosphatase (46 - 116 U/L) Cancelled 56 Creatine Kinase (24 - 260 U/L) 76 Troponin (0.00 - 1.5 ng/mL) <0.05 Total Protein (6.4 - 8.2 g/dL) Cancelled 6.1 Albumin (3.3 - 5.0 g/dL) Cancelled 2.5 Hematology WBC (4.5 - 11.5 K/uL) Cancelled 9.7 RBC (4.50 - 5.90 M/uL) Cancelled 4.27 Hgb (13.5 - 17.5 gm/dL) Cancelled 13.1 Hct (41.0 - 53.0 %) Cancelled 40.0 MCV (80 - 100 fL) Cancelled 94 MCH (26 - 34 pg) Cancelled 31 RDW (11.6 - 14.8 %) Cancelled 12.8 Gran % 89.0 Lymph % (Auto) (25 - 40 %) 9.4 [place] % (Auto) (3 - 14 %) 1.6 Plt Count, EDTA (150 - 400 K/uL) Cancelled 200 PUBS MCHC (31 - 37 g/dL) Cancelled 33 Assessment and Plan Problem List 1. Pneumonia Plan - improving rapidly - pt hasb een afebrile, is saturating normally on room air, has decreased cough - will discharge on azithromycin 500 mg daily for 8 days 2. Acute respiratory failure with hypoxia Plan - secondary to cigarette smoking and pneumonia - currently resolved - will prescribe inhaler for out patient use 3. Tobacco use disorder Plan - pt advised to stop smoking - pt has no intention of stopping and claims that hell continue smoking till the day he dies - pt questioned to as whether he needs nicotine patch or out patient quitting referrals, to which he did not accept
--- NOTE | 2016-04-22 14:00 | Provider's Discharge Care Plan ---
Problem, Goal, Plan Problem List 1. Hypoxia Instructions: - resolved take inhalers as prescribed 2. Pneumonia Instructions: - improved, finish course of antibiotics 3. Tobacco use disorder Instructions: Stop smoking, - please make every effort to quit
[2016-04-22] MEDS ORDERED: AZITHROMYCIN500 MG PO (14:01)
[2016-04-22] MEDS ORDERED: ALBUTEROL HFA60 DOSE IN (14:01)
--- NOTE | 2016-04-22 14:03 | Discharge Summary ---
Discharge Summary Report Admit Date 04/20/16 Discharge Date 04/22/16 Admission Diagnosis pneumonia with hypoxia Discharge Diagnosis pneumonia with resulting hypoxia Brief History Patient is a 60 year old male with a past medical history of Tobacco Use Disorder who presents to the ER at [facility] complaining of shortness of breath. Pt states his symptoms have been present for the last day or so and seem to be worsening. Pt states he has also had a significant cough which is productive of sputum. Pt reports intermittent fever and chills at home. He denies any nausea or vomiting. Pt denies any chest pain. He does complain of weakness. Pt states he has not recently had any sick contacts. In the ER, pt is found to have an SpO2 of 87% on room air on arrival. He was started on supplemental O2 and was found to have an acute RML pneumonia on chest x-ray. Hospital Course Patient was admitted for pneumonia with hypoxia. Patient was started on iv antibiotics and placed on supplemental oxygen. Initially when the patient presented his oxygen requirement was 6 liters on nasal cannula with a oxygen saturation of 93%. Patient continued his antibiotics and underwent respiratory rehab via incentive spirometry. Patients overall oxygen requirement decreased steadily over the next 24 hours. Today the patient was seen to be saturating at 95% on room air. Patient is currently stable, and will be discharged today. Patient was told to obtain a primary care doctor, and to continue with antibiotics and prescribed inhaler. General Appearance Alert, Oriented X3, No acute distress Lungs slightly ronchi at bases Cardiovascular Normal S1, Normal S2 Abdomen Soft, No masses Skin No Rashes, No Breakdown Lab/Imaging Laboratory Tests 04/21 0400 0420 Chemistry Plasma Sodium (136 - 145 mmol/L) Cancelled 140 Plasma Potassium (3.5 - 5.1 mmol/L) Cancelled 4.3 Plasma Chloride (98 - 107 mmol/L) Cancelled 106 CO2 (Enzymatic) (21 - 32 mmol/L) Cancelled 24 BUN (7 - 18 mg/dL) Cancelled 18 Creatinine (0.6 - 1.3 mg/dL) Cancelled 0.9 Est GFR ( Amer) (mL/min) Cancelled >60 Est GFR (Non-Af Amer) (mL/min) Cancelled >60 Glucose (70 - 110 mg/dL) Cancelled 120 Lactic Acid (0.4 - 2.0 mmol/L) 3.7 Plasma Calcium (8.5 - 10.1 mg/dL) Cancelled 8.6 Plasma Magnesium Cancelled Total Bilirubin (0.0 - 1.0 mg/dL) Cancelled 0.4 AST (15 - 37 U/L) Cancelled 11 ALT (12 - 78 U/L) Cancelled 19 Alkaline Phosphatase (46 - 116 U/L) Cancelled 56 Total Protein (6.4 - 8.2 g/dL) Cancelled 6.1 Albumin (3.3 - 5.0 g/dL) Cancelled 2.5 Hematology WBC (4.5 - 11.5 K/uL) Cancelled 9.7 RBC (4.50 - 5.90 M/uL) Cancelled 4.27 Hgb (13.5 - 17.5 gm/dL) Cancelled 13.1 Hct (41.0 - 53.0 %) Cancelled 40.0 MCV (80 - 100 fL) Cancelled 94 MCH (26 - 34 pg) Cancelled 31 RDW (11.6 - 14.8 %) Cancelled 12.8 Gran % 89.0 Lymph % (Auto) (25 - 40 %) 9.4 [place] % (Auto) (3 - 14 %) 1.6 Plt Count, EDTA (150 - 400 K/uL) Cancelled 200 PUBS MCHC (31 - 37 g/dL) Cancelled 33 Discharge Instructions/Meds - take medications as prescribed - take inhaler as prescribed - make an appointment with a primary care doctor as soon as possible
--- NOTE | 2016-04-22 14:35 | NUR ---
PATIENT STATES HE WILL NOT FOLLOW UP WITH A PCP AFTER DC FROM HOSPITAL. MD STATES HE IS OK WITH THIS. TO FOLLOW UP WITH PCP PRN.
--- NOTE | 2016-04-22 15:27 | NUR ---
DC'D IV TO RFA, HEMOSTASIS ACHIEVED WITH MANUAL PRESSURE, APPLIED GAUZE AND TAPE. DC INSTRUCTIONS AND PRESCRIPTIONS GIVEN. PATIENT VERBALIZED UNDERSTANDING. PATIENT TRANSPORTED TO HOME BY FRIEND AND ESCORTED OUT OF FACILITY BY THIS RN.
--- NOTE | 2016-04-22 21:06 | ED MAR SUMMARY ---
..... Medication Administration Record [facility] [address] [place] [place] [address] Patient: CHLOE JEFFREY Visit ID: [id number] 60y, M Weight: 106.5 kg Height/Length: 71 in BMI: 32.8 ALLERGIES: No Known Drug Allergy Given 23:03 04/20/2016 Abiodun Wynn, ER T[employer] Medication Administered: ALBUTEROL [NEB TX], Dose: 2.5 mg Neb TX. Medication Ordered: Albuterol Neb Tx 2.5 mg (HHN). Start 23:10 04/20/2016 Bridget Luo R.N., Stop 23:23 04/20/2016 Bridget Luo R.N. Medication Administered: IV NS (SALINE), Dose: IV Fluids over 20 minute(s), Rate: 3000 mL/hr, Dispensed: 1000 mL bag, Site: #1 left forearm. Medication Ordered: IV NS : initial bolus 1000 mL (1000 mL/hr), then 500 mL/hr for 2h (NOW); Routine. Start 23:15 04/20/2016 Bridget Luo R.N., Continued Upon Disposition 00:11 04/21/2016 Bridget Luo R.N. Medication Administered: LEVAQUIN [IVPB] (LEVOFLOXACIN), Dose: 750 mg IVPB over 90 minute(s), Rate: 100 mL/hr, Dispensed: 150 mL bag, Site: #1 left forearm. Medication Ordered: Levaquin IV 750 mg/150 mL (NOW). Given 00:01 04/21/2016 Bridget Luo R.N. Medication Administered: BACTRIM DS [PO] (SULFAMETHOXAZOLE-TMP DS), Dose: 2 tab Tablets PO. Medication Ordered: Bactrim DS PO (Tablet 800-160 mg) 2 tabs (NOW). Start 00:03 04/21/2016 Bridget Luo R.N., Continued Upon Disposition 00:12 04/21/2016 Bridget Luo R.N. Medication Administered: IV NS (SALINE), Dose: IV Fluids over 2 hour(s), Rate: 500 mL/hr, Dispensed: 1000 mL bag, Site: #1 left forearm. Medication Ordered: IV NS : initial bolus 1000 mL (1000 mL/hr), then 500 mL/hr for 2h (NOW); Routine.
--- NOTE | 2016-04-22 21:06 | ED MED RECONCILIATION SUMMARY ---
Patient: CHLOE JEFFREY Medication Reconciliation Report [facility] VisitID: [id number] [place] [address] 60y, M Registration Date/Time: 04/20/2016 Weight: 106.5 kg Height/Length: 71 in. BMI: 32.8 ALLERGIES: No Known Drug Allergy The patient's Home Medications are listed below: NONE. The source(s) of the original Home Medication information: patient The following Medications were given to the patient in the Emergency Department: Albuterol [Neb Tx] Neb TX 2.5 mg, administered: 04/20/2016 11:03:00 PM IV NS IV Fluids bolus 0, then 3000 mL/hr, administered: 04/20/2016 11:10:00 PM Levaquin [IVPB] IVPB bolus 0, then 750 mg 100 mL/hr, administered: 04/20/2016 11:15:00 PM IV NS IV Fluids bolus 0, then 500 mL/hr, administered: 04/21/2016 12:03:00 AM Bactrim DS [PO] PO 2 tab, administered: 04/21/2016 12:01:00 AM The following Medications were prescribed to the patient: None.
--- NOTE | 2016-04-22 21:06 | ED MED RECONCILIATION SUMMARY ---
Patient: CHLOE JEFFREY Medication Reconciliation Report [facility] VisitID: [id number] [place] [address] 60y, M Registration Date/Time: 04/20/2016 Weight: 106.5 kg Height/Length: 71 in. BMI: 32.8 ALLERGIES: No Known Drug Allergy The patient's Home Medications are listed below: NONE. The source(s) of the original Home Medication information: patient The following Medications were given to the patient in the Emergency Department: Albuterol [Neb Tx] Neb TX 2.5 mg, administered: 04/20/2016 11:03:00 PM IV NS IV Fluids bolus 0, then 3000 mL/hr, administered: 04/20/2016 11:10:00 PM Levaquin [IVPB] IVPB bolus 0, then 750 mg 100 mL/hr, administered: 04/20/2016 11:15:00 PM IV NS IV Fluids bolus 0, then 500 mL/hr, administered: 04/21/2016 12:03:00 AM Bactrim DS [PO] PO 2 tab, administered: 04/21/2016 12:01:00 AM The following Medications were prescribed to the patient: None.
--- NOTE | 2016-04-22 21:06 | ED DISCHARGE INSTRUCTIONS ---
Patient: CHLOE JEFFREY General Instructions [facility] VisitID: [id number] [place] [address] 60y, M Registration Date/Time: 04/20/2016 Bacterial bronchopneumonia with hypoxemia. Vital signs recorded and reviewed; empiric antibiotics given in the ED. Pleurisy. Hypoxia Dehydration Early sepsis with elevated lactic acid. INSTRUCTIONS Warnings: Further evaluation is necessary. ADDITIONAL INFORMATION Pleurisy If you have pleurisy, the lining around your lungs is inflamed. It is most often due to a viral infection or pneumonia. It usually lasts for 1014 days. It may cause sharp pain with breathing, coughing, sneezing and movement. Antibiotics are usually not prescribed for this condition unless pneumonia is also present. Home care The following will help you care for your condition at home: If symptoms are severe, rest at home for the first 23 days. Avoid being exposed to cigarette smoke (yours or that of others). You may use acetaminophen or ibuprofen to control pain, unless another pain medicine was prescribed. If you have chronic liver or kidney disease or ever had a stomach ulcer or GI bleeding, talk with your doctor before using these medicines. Follow-up care Follow up with your doctor or as advised if you do not improve over the next week. When to seek medical care Get prompt medical attention if any of the following occur: Increasing shortness of breath Increase in chest pain, or pain spreads to the neck, arm or back Fever over 100.4F (38.0C) for more than three days Coughing up lots of colored sputum (mucus) or blood Redness, pain or swelling of the leg Pneumonia (Adult) Pneumonia is an infection deep within the lung, in the small air sacs (alveoli). It may be due to a virus or bacteria and is usually treated with an antibiotic. Severe cases require treatment in the hospital. Milder cases can be treated at home. Symptoms usually start to improve during the first2 days of treatment. Home Care: Rest at home for the first 23 days or until you feel stronger. When resuming activity, dont let yourself become overly tired. Avoid exposure to cigarette smoke (yours or others). You may use acetaminophen (Tylenol) or ibuprofen (Motrin, Advil) to control fever or pain, unless another medicine was prescribed. [NOTE: If you have chronic liver or kidney disease or ever had a stomach ulcer or GI bleeding, talk with your doctor before using these medicines.] (Aspirin should never be used in anyone under 18 years of age who is ill with a fever. It may cause severe liver damage.) Your appetite may be poor so a light diet is fine. Keep well hydrated by drinking 68 glasses of fluids per day (water, sport drinks such as Gatorade, sodas without caffeine, juices, tea, soup, etc.). This will help loosen secretions in the lung, making it easier for you to cough up the phlegm (sputum). If you also have heart or kidney disease, check with your doctor before you drink extra amounts of fluids. Finish all antibiotic medicine prescribed, even if you are feeling better after a few days. Follow Up with your doctor in the next 23 days (or as advised) to be sure you are responding properly to the medicine. [NOTE: If you are age 65 or older, or if you have chronic lung disease (asthma, emphysema or COPD), we recommendthe pneumococcal vaccination and a yearlyinfluenzavaccination(flu-shot) every . Ask your doctor about this.] Get Prompt Medical Attention if any of the following occur: Not getting better within the first 48 hours of treatment Increasing shortness of breath or rapid breathing (over 25 breaths/minute) Coughing up blood or increasing chest pain with breathing Fever of 100.4F (38C) oral or higher, not better with fever medication Increasing weakness, dizziness or fainting Increasing thirst or dry mouth Sinus pain, headache or a stiff neck Chest pain not caused by coughing You have been given the following additional information: Pleurisy Pneumonia (Adult) (Electronically signed by Conor Avila MD 04/22/2016 21:06)
--- NOTE | 2016-04-22 21:06 | ED MAR SUMMARY ---
..... Medication Administration Record [facility] [address] [place] [address] Patient: CHLOE JEFFREY Visit ID: [id number] 60y, M Weight: 106.5 kg Height/Length: 71 in BMI: 32.8 ALLERGIES: No Known Drug Allergy Given 23:03 04/20/2016 Abiodun Wynn, ER Residential Driver Medication Administered: ALBUTEROL [NEB TX], Dose: 2.5 mg Neb TX. Medication Ordered: Albuterol Neb Tx 2.5 mg (HHN). Start 23:10 04/20/2016 Bridget Luo R.N., Stop 23:23 04/20/2016 Bridget Luo R.N. Medication Administered: IV NS (SALINE), Dose: IV Fluids over 20 minute(s), Rate: 3000 mL/hr, Dispensed: 1000 mL bag, Site: #1 left forearm. Medication Ordered: IV NS : initial bolus 1000 mL (1000 mL/hr), then 500 mL/hr for 2h (NOW); Routine. Start 23:15 04/20/2016 Bridget Luo R.N., Continued Upon Disposition 00:11 04/21/2016 Bridget Luo R.N. Medication Administered: LEVAQUIN [IVPB] (LEVOFLOXACIN), Dose: 750 mg IVPB over 90 minute(s), Rate: 100 mL/hr, Dispensed: 150 mL bag, Site: #1 left forearm. Medication Ordered: Levaquin IV 750 mg/150 mL (NOW). Given 00:01 04/21/2016 Bridget Luo R.N. Medication Administered: BACTRIM DS [PO] (SULFAMETHOXAZOLE-TMP DS), Dose: 2 tab Tablets PO. Medication Ordered: Bactrim DS PO (Tablet 800-160 mg) 2 tabs (NOW). Start 00:03 04/21/2016 Bridget Luo R.N., Continued Upon Disposition 00:12 04/21/2016 Bridget Luo R.N. Medication Administered: IV NS (SALINE), Dose: IV Fluids over 2 hour(s), Rate: 500 mL/hr, Dispensed: 1000 mL bag, Site: #1 left forearm. Medication Ordered: IV NS : initial bolus 1000 mL (1000 mL/hr), then 500 mL/hr for 2h (NOW); Routine.
== END 2016-04-22 15:25 | disposition home or self-care (01) | DRG 720 ==
LOC: ED SRH 22:35 → CC SRH 23:39 → TRANS SRH 23:39 → CC SRH 04-21 00:35
PROVIDERS: ADMIT Family Medicine
DX: A41.9 Sepsis, unspecified organism (principal); J18.9 Pneumonia, unspecified organism; R65.20 Severe sepsis without septic shock; J96.01 Acute respiratory failure with hypoxia; E83.42 Hypomagnesemia; Z72.0 Tobacco use